=== PATIENT | female | born 2000 | race African-American/Black ===

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

== ENCOUNTER 2020-01-24 12:34 | Emergency (ER) | payer MEDICAID ==
[~2020-01-24] VITALS: Ht 172.7 cm; Wt 64.9 kg
[~2020-01-24 12:34] MED LIST changes: +IBUPROFEN600 MG ORAL; +NORCO 5-325 TA1 EACH ORAL
--- NOTE | 2020-01-24 12:50 | NUR ---
ED Nurse Note: Pt walked into ED for c/o pain while urinating and burning sensation. Pt also has pain in parietal area during sexual intercourse. Pt is 1 month . She is alert and orientedx4,ambulatory.
[2020-01-24 12:52] VITALS: BP 120/75
--- NOTE | 2020-01-24 13:01 | Emergency Room Report ---
History of Present Illness General Chief Complaint: Female Urogenital Problems Source: Patient Present Illness HPI Disclaimer: Please note that this report is being documented using DRAGON technology. This can lead to erroneous entry secondary to incorrect interpretation by the dictating instrument. HPI: 19-year-old female G1, P0 presents for evaluation of dysuria. LMP was December 24 the patient states she had a confirmed at her [employer] office. She has an appointment for ultrasound in 3 days. She reports 2 days of burning sensation with urination as well as with sex. Denies lower abdominal cramping, nausea, vomiting, diarrhea, fever, chills. Denies vaginal bleeding or vaginal discharge. Denies flank or back pain. PMH: Denies PSH: Reviewed Allergies: Denies Social Hx: Denies Allergies: Coded Allergies: No Known Allergies (Unverified , 11/21/16) Review of Systems All Other Systems: negative except mentioned in HPI Physical Exam Vital Signs Date Time Temp Pulse Resp B/P (MAP) Pulse Ox O2 Delivery O2 Flow Rate FiO2 01/24/20 12:40 98.4 60 16 116/72 (87) 100 Room Air General: Awake and alert, no acute distress HEENT: NC/AT. EOMI. Resp: Normal work of breathing Abdomen: Soft, nontender, nondistended. Skin: Intact. No abrasions, laceration or rash over the exposed skin MSK: Normal tone and bulk. Moving all extremities. No obvious deformity. Neuro: Awake and alert. Mentating appropriately Medical Decision Making Diagnostic Impression: Primary Impression: UTI in ER Course 19-year-old G1, P0 female presents for evaluation of dysuria. Differential includes was not limited to cystitis, urinary tract infection, pyelonephritis, [place] infection. Concern for urinary tract infection in a urinalysis was obtained. An hCG urine test confirms positive result. Preliminary UA results show 1+ leukocyte esterase but the differential is pending. The patient states she can no longer wait in the emergency department and will follow-up on the results. I did prescribe her Keflex for presumed urinary tract infection. She has an appoint with her [employer] in 3 days for ultrasound and follow-up. Discussed reasons to return to the emergency department. She understands and agrees with treatment plan. Laboratory Tests Test 01/24/20 12:50 Urine Color Pale yellow Urine Appearance Clear Urine pH 5 (4.5-8.0) Urine Specific [place] 1.025 (1.005-1.035) Urine Protein 1+ (NEGATIVE) H Urine Glucose (UA) Negative (NEGATIVE) Urine Ketones Negative (NEGATIVE) Urine Blood 1+ (NEGATIVE) H Urine Nitrite Negative (NEGATIVE) Urine Bilirubin Negative (NEGATIVE) Urine Urobilinogen Normal MG/DL (0.0-1.0) Urine Leukocyte Esterase 1+ (NEGATIVE) H Urine RBC Pending Urine WBC Pending Urine Squamous Epithelial Cells Pending Urine Bacteria Pending Urine HCG, Qualitative Positive (NEGATIVE) Last Vital Signs Date Time Temp Pulse Resp B/P (MAP) Pulse Ox O2 Delivery O2 Flow Rate FiO2 01/24/20 12:52 98.4 87 18 120/75 98 Room Air Disposition: HOME, SELF-CARE Condition: Stable Scripts Cephalexin* (KEFLEX*) 500 Mg Capsule 500 MG ORAL EVERY 12 HOURS, #14 CAP 0 Refills Prov: Eugene Bueno MD 01/24/20 Eugene Bueno MD January 24, 2020 13:01
[2020-01-24 13:52] LABS: APPEARANCE,URINE CLEAR; BILIRUBIN, URINE NEGATIVE (NEGATIVE); COLOR,URINE PALE YELLOW; GLUCOSE, URINE (UA) NEGATIVE (NEGATIVE); KETONES,URINE NEGATIVE (NEGATIVE); LEUKOCYTE ESTERASE ,URINE 1+ (NEGATIVE); NITRITE,URINE NEGATIVE (NEGATIVE); PH,URINE 5 (4.5-8.0); PROTEIN,URINE 1+ (NEGATIVE); UROBILINOGEN,URINE NORMAL MG/DL (0.0-1.0)
[2020-01-24] MEDS ORDERED: CEPHALEXIN500 MG ORAL (13:55)
[2020-01-24 13:58] VITALS: BP 115/70
--- NOTE | 2020-01-24 13:58 | NUR ---
ER DISCHARGE NOTE: Patient is cleared to be discharged per ERMD, pt is aox4, on room air, with stable vital signs. pt was given dc and prescription instructions, pt was able to verbalize understanding, pt id band removed without complications. pt is able to ambulate with steady gait. pt took all belongings.
== END 2020-01-24 13:58 | disposition home or self-care (01) ==
LOC: EMR 13:04
DX: O23.40 Unspecified infection of urinary tract in pregnancy, unspecified trimester (principal); Z3A.00 Weeks of gestation of pregnancy not specified
CPT/HCPCS: 81003; 81025; Z7502; 99283

== ENCOUNTER 2020-02-06 10:28 | Emergency (ER) | payer MEDICAID ==
[~2020-02-06] VITALS: Ht 172.7 cm; Wt 65.8 kg
[~2020-02-06 10:28] MED LIST changes: +CEPHALEXIN500 MG ORAL
--- NOTE | 2020-02-06 10:50 | NUR ---
ED Nurse Note: Pt ambulated to ed c/o lower abdomen pain x 3 days. pt reports spotting and bleeding, pt is 6 weeks . pt has hx of 1 last year. no other pregnancies. pt iv site established; patent and intact. pt urine and blood specimen sent to lab.
[2020-02-06 10:51] VITALS: BP 130/76
[2020-02-06 11:16] LABS: APPEARANCE,URINE SLIGHTLY CLOUDY; BASOPHILS % (AUTO) 1.3 % (0.0-2.0); BILIRUBIN, URINE NEGATIVE (NEGATIVE); EOSINOPHILS % (AUTO) 0.1 % (0.0-3.0); GLUCOSE, URINE (UA) NEGATIVE (NEGATIVE); KETONES,URINE 2+ (NEGATIVE); LEUKOCYTE ESTERASE ,URINE 2+ (NEGATIVE); LYMPHOCYTES % (AUTO) 22.9 % (20.0-45.0); MEAN CORPUSCULAR VOLUME 80 FL (80-99); MONOCYTES % (AUTO) 8.7 % (1.0-10.0); NITRITE,URINE NEGATIVE (NEGATIVE); PH,URINE 5 (4.5-8.0); PLATELET COUNT 407 K/UL (150-450); PROTEIN,URINE 2+ (NEGATIVE); RED BLOOD COUNT 4.01 M/UL (4.20-5.40); RED CELL DISTRIBUTION WIDTH 15.2 % (11.6-14.8); UROBILINOGEN,URINE NORMAL MG/DL (0.0-1.0); WHITE BLOOD COUNT 7.1 K/UL (4.8-10.8)
[2020-02-06 11:27] LABS: ANION GAP 11 mmol/L (5-15); BLOOD UREA NITROGEN 8 mg/dL (7-18); CALCIUM 8.8 MG/DL (8.5-10.1); CARBON DIOXIDE 24 MMOL/L (21-32); CHLORIDE 102 MMOL/L (98-107); CREATININE 0.8 MG/DL (0.55-1.30); POTASSIUM 3.3 MMOL/L (3.5-5.1); SODIUM 137 MMOL/L (136-145)
[2020-02-06 11:30] LABS: COLOR,URINE YELLOW
[2020-02-06 11:32] LABS: ALANINE AMINOTRANSFERASE 13 U/L (12-78); ALBUMIN 3.7 G/DL (3.4-5.0); ALBUMIN/GLOBULIN RATIO 0.9 (1.0-2.7); ALKALINE PHOSPHATASE 35 U/L (46-116); ASPARTATE AMINO TRANSFERASE 17 U/L (15-37); BILIRUBIN,TOTAL 0.4 MG/DL (0.2-1.0)
--- NOTE | 2020-02-06 11:35 | Emergency Room Report ---
History of Present Illness General Chief Complaint: Abdominal Pain Source: Patient Present Illness HPI This patient states that she is 6 weeks . She is , SAB 1. She states she has had some vaginal spotting occasionally. She primarily has had pain in her left lower quadrant of her abdomen. She has had nausea and occasional vomiting. She denies fever or chills. She denies chest pain or shortness of breath. She denies cough or congestion. She is taking vitamins. She has a planned first OB visit for 1 week from now. She denies dysuria or hematuria. She denies abnormal vaginal discharge. She has no other complaints. Allergies: Coded Allergies: No Known Allergies (Unverified , 11/21/16) COVID-19 Screening Contact w/high risk pt: No Recent Travel to affected area: No Experienced COVID-19 symptoms?: No COVID-19 Testing performed CORRAL BOSS: No Patient History Past Medical History: none Past Surgical History: none Pertinent Family History: none Social History: Denies: smoking, alcohol use, drug use Last Menstrual Period: 2 months Now: Yes Reviewed Nursing Documentation: PMH: Agreed; PSxH: Agreed Review of Systems All Other Systems: negative except mentioned in HPI Physical Exam Vital Signs Date Time Temp Pulse Resp B/P (MAP) Pulse Ox O2 Delivery O2 Flow Rate FiO2 02/06/20 10:32 99.7 80 20 130/76 (94) 100 Room Air Sp02 EP Interpretation: reviewed, normal General Appearance: no apparent distress, alert, GCS 15, non-toxic Head: normocephalic, atraumatic Eyes: bilateral eye normal inspection, bilateral eye PERRL ENT: hearing grossly normal, normal pharynx, no angioedema, normal voice Neck: full range of motion, supple/symm/no masses Respiratory: no respiratory distress, no retraction, no accessory muscle use, speaking full sentences Gastrointestinal: soft, non-distended, no guarding, no rebound, tenderness - TTP in the LLQ Rectal: deferred Musculoskeletal: back normal, normal range of motion, gait/station normal, non- tender Neurologic: alert, motor strength/tone normal, oriented x3, sensory intact, responsive, speech normal Psychiatric: judgement/insight normal, memory normal, mood/affect normal, no suicidal/homicidal ideation Skin: no rash, normal color Medical Decision Making Diagnostic Impression: Primary Impression: Abdominal pain Additional Impressions: First trimester bleeding UTI (urinary tract infection) ER Course This patient has first trimester spotting and left lower quadrant abdominal pain. Overall, the patient's abdomen is benign and nonsurgical. She did undergo an ultrasound that showed an intrauterine with heart tones in the 140s. I have a low suspicion for heterotopic . Especially given the benign exam. The patient's urinalysis was contaminated, as a precaution, I will give the patient oral antibiotics. Patient's laboratory work-up is noncontributory. The patient is instructed to follow-up closely with her OB as planned at her next appointment in 1 week. She is also given very close return precautions and follow-up instructions. Laboratory Tests Test 02/06/20 10:45 White Blood Count 7.1 K/UL (4.8-10.8) Red Blood Count 4.01 M/UL (4.20-5.40) L Hemoglobin 11.0 G/DL (12.0-16.0) L Hematocrit 32.0 % (37.0-47.0) L Mean Corpuscular Volume 80 FL (80-99) Mean Corpuscular Hemoglobin 27.4 PG (27.0-31.0) Mean Corpuscular Hemoglobin Concent 34.4 G/DL (32.0-36.0) Red Cell Distribution Width 15.2 % (11.6-14.8) H Platelet Count 407 K/UL (150-450) Mean Platelet Volume 4.8 FL (6.5-10.1) L Neutrophils (%) (Auto) 67.0 % (45.0-75.0) Lymphocytes (%) (Auto) 22.9 % (20.0-45.0) Monocytes (%) (Auto) 8.7 % (1.0-10.0) Eosinophils (%) (Auto) 0.1 % (0.0-3.0) Basophils (%) (Auto) 1.3 % (0.0-2.0) Urine Color Yellow Urine Appearance Slightly cloudy Urine pH 5 (4.5-8.0) Urine Specific [place] 1.025 (1.005-1.035) Urine Protein 2+ (NEGATIVE) H Urine Glucose (UA) Negative (NEGATIVE) Urine Ketones 2+ (NEGATIVE) H Urine Blood Negative (NEGATIVE) Urine Nitrite Negative (NEGATIVE) Urine Bilirubin Negative (NEGATIVE) Urine Urobilinogen Normal MG/DL (0.0-1.0) Urine Leukocyte Esterase 2+ (NEGATIVE) H Urine RBC 0-2 /HPF (0 - 2) Urine WBC 5-10 /HPF (0 - 2) H Urine Squamous Epithelial Cells Moderate /LPF (NONE/OCC) H Urine Amorphous Sediment Few /LPF (NONE) H Urine Bacteria Few /HPF (NONE) Sodium Level 137 MMOL/L (136-145) Potassium Level 3.3 MMOL/L (3.5-5.1) L Chloride Level 102 MMOL/L (98-107) Carbon Dioxide Level 24 MMOL/L (21-32) Anion Gap 11 mmol/L (5-15) Blood Urea Nitrogen 8 mg/dL (7-18) Creatinine 0.8 MG/DL (0.55-1.30) Estimated Glomerular Filtration Rate > 60 mL/min (>60) Glucose Level 89 MG/DL (74-106) Calcium Level 8.8 MG/DL (8.5-10.1) Total Bilirubin 0.4 MG/DL (0.2-1.0) Aspartate Amino Transferase (AST) 17 U/L (15-37) Alanine Aminotransferase (ALT) 13 U/L (12-78) Alkaline Phosphatase 35 U/L (46-116) L Total Protein 7.6 G/DL (6.4-8.2) Albumin 3.7 G/DL (3.4-5.0) Globulin 3.9 g/dL Albumin/Globulin Ratio 0.9 (1.0-2.7) L Human Chorionic Gonadotropin, Quant 13356 mIU/mL (1-6) H CT/MRI/US Diagnostic Results CT/MRI/US Diagnostic Results : Imaging Test Ordered: US ob: Impression 6 week IUP, HR 140's Last Vital Signs Date Time Temp Pulse Resp B/P (MAP) Pulse Ox O2 Delivery O2 Flow Rate FiO2 02/06/20 10:51 99.7 80 20 130/76 100 Room Air Status: improved Disposition: HOME, SELF-CARE Condition: Improved Referrals: NOT CHOSEN IPA/,REFERRING (PCP) Patient Instructions: Abdominal Pain During Katharine Manuel DO Feb 06, 2020 11:35
[2020-02-06] MEDS ORDERED: CEPHALEXIN500 MG ORAL (12:16)
[2020-02-06 12:27] VITALS: BP 122/75
--- NOTE | 2020-02-06 12:50 | Diagnostic Imaging Report ---
EXAM: US First Trimester , Transabdominal and Transvaginal CLINICAL HISTORY: PAIN TECHNIQUE: Real-time transabdominal and transvaginal obstetrical ultrasound of the maternal pelvis and a first trimester with image documentation. Transvaginal imaging was used for better evaluation of the fetus and adnexa. COMPARISON: No relevant prior studies available. FINDINGS: Gestation: Intrauterine gestational sac and sac with tiny pole, correlating with gestational age of 6 weeks 1 day. Heart motion is observed at a rate of 122 BPM Placenta/amniotic fluid: Cannot be adequately evaluated due to the early gestational age. Uterus/cervix: Small nabothian cyst. Ovaries: Enlarged left ovary containing a small hyperechoic focus. Appearance is nonspecific. Difficult to exclude small dermoid cyst. No sonographic findings of torsion. Right ovary is not identified Free fluid: No free fluid. IMPRESSION: Live IUP measuring 6 weeks 1 day. Enlarged left ovary containing a small hyperechoic focus. Appearance is nonspecific. Difficult to exclude small dermoid cyst. No sonographic findings of torsion.
--- NOTE | 2020-02-06 13:21 | NUR ---
ED Nurse Note: pt was given zofran while in room. pt hasnt left due waiting for boyfriend to be discharged.
[2020-02-06] MEDS ORDERED: Ondansetron ODT 8mg tab ORAL ONE (13:30)
== END 2020-02-06 13:00 | disposition home or self-care (01) ==
LOC: EMR 11:15
DX: O26.851 Spotting complicating pregnancy, first trimester (principal); O23.41 Unspecified infection of urinary tract in pregnancy, first trimester; Z3A.01 Less than 8 weeks gestation of pregnancy; R10.9 Unspecified abdominal pain
CPT/HCPCS: 36415; 76801; 76817; 80053; 81003; 84702; 85025; 86850; 86900; 86901; Q0162; Z7502; 99284